=== PATIENT | female | born 1970 ===

== ENCOUNTER 2018-02-27 13:50 | Observation (INO) | payer OTHER ==
--- NOTE | 2018-02-27 14:52 | ED PDOC ---
HPI: General Adult Time Seen by Provider: 02/27/18 14:35 Chief Complaint (Nursing): Dental Pain Chief Complaint (Provider): facial swelling History Per: Patient History/Exam Limitations: no limitations Current Symptoms Are (Timing): Still Present Severity: Moderate Location Of Discomfort (Image): 1 - pain swelling Additional Complaint(s): Virtual Initial Exam 47yo female with L facial swelling since yesterday, started around L ear progressing to cheek and upper neck. States has mild tinnitus, denies discharge from ear, fever, neck pain or difficulty swallowing. Past Medical History Reviewed: Historical Data, Nursing Documentation, Vital Signs - Medical History PMH: No Chronic Diseases - Family History Family History: States: Unknown Family Hx - Allergies Allergies/Adverse Reactions: Allergies Allergy/AdvReac Type Severity Reaction Status Date / Time No Known Allergies Allergy Verified 02/27/18 14:46 Review of Systems Constitutional: Negative for: Fever ENT: Positive for: Ear Pain, Other (facial pain swelling). Negative for: Nose Pain, Nose Discharge Cardiovascular: Negative for: Chest Pain Respiratory: Negative for: Shortness of Breath Gastrointestinal: Negative for: Abdominal Pain Neurological: Positive for: Headache. Negative for: Weakness, Numbness, Dizziness Physical Exam - Physical Exam Appears: Positive for: Well, Non-toxic Head Exam: Positive for: ATRAUMATIC ENT: Positive for: Other (L facial swelling and edema/erythema around ear) Medical Decision Making Medical Decision Making: initial evaluation completed via telemedicine, initial orders placed and care transferred to ground provider 255pm Disposition - Disposition
[2018-02-27] MEDS ORDERED: Sodium Chloride 0.9% 1,000 ML IV STA (15:34)
[2018-02-27 15:49] LABS: BASO # 0.1 K/uL (0.0-0.2); BASO % 1.1 % (0.0-2.0); EOS % 0.1 % (0.0-4.0); HEMOGLOBIN 11.8 g/dL (12.0-16.0); LYMPH # 1.4 K/uL (1.0-4.3); LYMPH % 18.5 % (20.0-40.0); MEAN CELL VOLUME 80.9 fl (81.0-99.0); MEAN CORPUSCULAR HEMOGLOBIN 26.4 pg (27.0-31.0); MEAN CORPUSCULAR HGB CONC 32.7 g/dL (33.0-37.0); MEAN PLATELET VOLUME 8.9 fl (7.2-11.7); MONO # 0.4 K/uL (0.0-0.8); MONO % 5.7 % (0.0-10.0); NEUT # 5.7 K/uL (1.8-7.0); NEUT % 74.6 % (50.0-75.0); RBC 4.46 Mil/uL (3.80-5.20); RED CELL DISTRIBUTION WIDTH 14.8 % (11.5-14.5); WHITE BLOOD COUNT 7.7 K/uL (4.8-10.8)
--- NOTE | 2018-02-27 15:58 | ED PDOC ---
HPI: General Adult Time Seen by Provider: 02/27/18 14:35 Chief Complaint (Nursing): Abnormal Skin Integrity Chief Complaint (Provider): Abnormal Skin Integrity History Per: Patient History/Exam Limitations: no limitations Onset/Duration Of Symptoms: Days (x1) Current Symptoms Are (Timing): Still Present Additional Complaint(s): Patient is a 47 y/o female with no significant PMHx who presents to the ED left- sided ear pain since yesterday. Patient claims the pain is worsening and radiating to the left side of the face since onset. Patient states her ear has swollen to the point where she in unable to remove her earring. Patient reports mild pain in her ear canal, but most of her pain is localized outside. Patient admits to subjective fever, chills, and lightheadedness. Patient denies any recent trauma. PCP: None Provided Past Medical History Reviewed: Historical Data, Nursing Documentation, Vital Signs Vital Signs: Last Vital Signs Temp 98.6 F 02/27/18 14:46 Pulse 109 H 02/27/18 14:46 Resp 16 02/27/18 14:46 BP 125/82 02/27/18 14:46 Pulse Ox 100 02/27/18 14:46 - Medical History PMH: No Chronic Diseases - Surgical History Surgical History: - Family History Family History: States: Unknown Family Hx - Social History Current smoker - smoking cessation education provided: No - Home Medications Home Medications: Ambulatory Orders Medication Instructions Recorded Levothyroxine [Synthroid] 100 mcg PO DAILY 02/27/18 - Allergies Allergies/Adverse Reactions: Allergies Allergy/AdvReac Type Severity Reaction Status Date / Time Penicillins Allergy RASH Verified 02/27/18 15:48 Review of Systems ROS Statement: Except As Marked, All Systems Reviewed And Found Negative (as per HPI) Constitutional: Positive for: Fever (subjective), Chills ENT: Positive for: Ear Pain (and swelling radiating to left side of face; most pain localized on outside; mild pain inside) Neurological: Positive for: Other (lightheaded) Physical Exam - Reviewed Nursing Documentation Reviewed: Yes Vital Signs Reviewed: Yes - Physical Exam Appears: Positive for: Non-toxic, In Acute Distress (painful) Head Exam: Positive for: ATRAUMATIC, NORMAL INSPECTION, NORMOCEPHALIC Skin: Positive for: Warm, Dry Eye Exam: Positive for: EOMI, PERRL ENT: Positive for: TM Is/Are (LEFT: white, scarring opacity; no erythema. RIGHT: normal), Other (Left, upper ear cartilage is diffusely erythematous and edematous; erythema extending to preauricular face; tenderness to palpation of preauricular node and mastoid; ear canal mild swelling) Neck: Positive for: Painless ROM, Supple Cardiovascular/Chest: Positive for: Regular Rate, Rhythm, Tachycardia. Negative for: Murmur Respiratory: Positive for: Normal Breath Sounds. Negative for: Respiratory Distress Gastrointestinal/Abdominal: Positive for: Soft. Negative for: Tenderness Back: Positive for: Normal Inspection. Negative for: Muscle Spasm Extremity: Positive for: Normal ROM. Negative for: Deformity Lymphatic: Positive for: Adenopathy (periauricular) Neurologic/Psych: Positive for: Alert. Negative for: Motor/Sensory Deficits - Laboratory Results Result Diagrams: 02/27/18 15:08 02/27/18 15:08 - ECG O2 Sat by Pulse Oximetry: 100 (RA) Pulse Ox Interpretation: Normal Medical Decision Making Medical Decision Making: Time: 1508 Impression: Perichondritis DDx includes but not limited to malignant otitis externum, facial cellulitis, and mastoiditis. Plan: CMP Lact Acid, Plasma CBC IV Fluids Toradol 15 mg IVP Tylenol 650 mg PO Blood Culture Time: [address] Dias, ENT specialist, who states to initiate IV antibiotics and IV Decadron. Agrees with evaluation of Mastoids via CT scan. Time: 1734 FINDINGS: RIGHT TEMPORAL BONE: RIGHT MIDDLE EAR: Normal. RIGHT INNER EAR: Cochlea: Normal. Semicircular canals: Normal. RIGHT MASTOID AIR CELLS: Normal. RIGHT INTERNAL AUDITORY CANAL: Normal. RIGHT EXTERNAL AUDITORY CANAL: Normal. RIGHT VESTIBULAR AND COCHLEAR AQUEDUCT: Normal. OTHER FINDINGS: None. LEFT TEMPORAL BONE: LEFT MIDDLE EAR: Normal. LEFT INNER EAR: Cochlea: Normal. Semicircular canals: Normal. LEFT MASTOID AIR CELLS: Normal. LEFT INTERNAL AUDITORY CANAL: Normal. LEFT EXTERNAL AUDITORY CANAL: Normal. LEFT VESTIBULAR AND COCHLEAR AQUEDUCTS: Normal. OTHER FINDINGS: There appears to be mild moderate infiltration/swelling of the left pinna as well as the subjacent soft tissues extending anteriorly over the mandibular condyle and posteriorly over the mastoid process. Collectively these findings are consistent with a cellulitis no evidence of subjacent cortical destructive changes of the outer table. No definitive drainable fluid collections.... No evidence of extension into the soft tissues of the external auditory canal IMPRESSION: Mild moderate infiltration and swelling of the left pinna which extends both circumferentially anteriorly overlying the mandibular condyle and posteriorly overlying the tip of the mastoid process. Findings are consistent with a cellulitis. No definitive evidence of extension into the soft tissues of the external auditory canal. No evidence of subjacent cortical destructive changes of the outer table of the calvarium. No definitive drainable fluid collections. No evidence of acute mastoiditis. No evidence of otitis media. Time: 174 On reevaluation, swelling and redness have slightly improved, but persist. Patient reports feeling a little better. Labs were unremarkable. Time: [address] Dias who recommends observation in hospital and IV antibiotics for 24 hours. Discuss[address] hospice with Dr. Tam. -------- Scribe Attestation: Documented by Stanislaw Rollins, acting as a scribe for provider Danna Leung MD. All medical record entries made by the Scribe were at my direction and personally dictated by me. I have reviewed the chart and agree that the record accurately reflects my personal performance of the history, physical exam, medical decision making, and the department course for this patient. I have also personally directed, reviewed, and agree with the discharge instructions and disposition. Disposition - Clinical Impression Clinical Impression: Perichondritis, Facial cellulitis Doctor Will See Patient In The: Hospital Counseled Patient/Family Regarding: Studies Performed, Diagnosis - Disposition Disposition Time: 18:00 Condition: FAIR - Pt Status Changed To: Hospital Disposition Of: Observation - POA Present On Arrival: None
[2018-02-27] MEDS ORDERED: Ciprofloxacin 400mg/200ml D5W 400 MG/200 ML BAG IV STA (16:03)
[2018-02-27] MEDS ORDERED: Clindamycin 600mg/50ml D5W 600 MG/50 ML VIAL IVPB STA (16:04)
[2018-02-27 16:10] LABS: ALB/GLOB RATIO 1.3 (1.0-2.1); ALBUMIN 4.2 g/dL (3.5-5.0); ALT/SGPT 23 U/L (9-52); AST/SGOT 30 U/L (14-36); BLOOD UREA NITROGEN 11 mg/dl (7-17); GFR NON-AFRICAN AMERICAN > 60
[2018-02-27] MEDS ORDERED: Ciprofloxacin 400mg/200ml D5W 400 MG/200 ML BAG IVPB ONE ×2 (16:24→21:09)
--- NOTE | 2018-02-27 17:52 | CT ---
Date of service: 02/27/2018 PROCEDURE: CT OF THE TEMPORAL BONES WITHOUT CONTRAST HISTORY: Severe perichondritis; rule out mastoiditis COMPARISON: Expect to [place] place TECHNIQUE: High resolution axial images of the temporal bones were obtained. Coronal and sagittal reformats were generated. Radiation dose: Total exam DLP = 726.72 mGy-cm. This CT exam was performed using one or more of the following dose reduction techniques: Automated exposure control, adjustment of the mA and/or kV according to patient size, and/or use of iterative reconstruction technique. FINDINGS: RIGHT TEMPORAL BONE: RIGHT MIDDLE EAR: Normal. RIGHT INNER EAR: Cochlea: Normal. Semicircular canals: Normal. RIGHT MASTOID AIR CELLS: Normal. RIGHT INTERNAL AUDITORY CANAL: Normal. RIGHT EXTERNAL AUDITORY CANAL: Normal. RIGHT VESTIBULAR AND COCHLEAR AQUEDUCT: Normal. OTHER FINDINGS: None. LEFT TEMPORAL BONE: LEFT MIDDLE EAR: Normal. LEFT INNER EAR: Cochlea: Normal. Semicircular canals: Normal. LEFT MASTOID AIR CELLS: Normal. LEFT INTERNAL AUDITORY CANAL: Normal. LEFT EXTERNAL AUDITORY CANAL: Normal. LEFT VESTIBULAR AND COCHLEAR AQUEDUCTS: Normal. OTHER FINDINGS: There appears to be mild moderate infiltration/swelling of the left pinna as well as the subjacent soft tissues extending anteriorly over the mandibular condyle and posteriorly over the mastoid process. Collectively these findings are consistent with a cellulitis no evidence of subjacent cortical destructive changes of the outer table. No definitive drainable fluid collections.... No evidence of extension into the soft tissues of the external auditory canal IMPRESSION: Mild moderate infiltration and swelling of the left pinna which extends both circumferentially anteriorly overlying the mandibular condyle and posteriorly overlying the tip of the mastoid process. Findings are consistent with a cellulitis. No definitive evidence of extension into the soft tissues of the external auditory canal. No evidence of subjacent cortical destructive changes of the outer table of the calvarium. No definitive drainable fluid collections. No evidence of acute mastoiditis. No evidence of otitis media.
--- NOTE | 2018-02-27 18:42 | CP.PCM.HP ---
<Zander Molina - Last Filed: 02/27/18 19:05> History of Present Illness - History of Present Illness History of Present Illness: 47 yo F with pmhx of hypothyroid presents to the ED with L facial and ear swelling. Pt reports that since yesterday AM, she felt mild outer ear erythema progressed to swelling progressed to tenderness progressed to inner ear pain and associated with subjective fevers. Associated with tinnitus, decreased hearing on the Left, and dizziness with walking. Headache to the left side, pulsatile, intermittent, rated 9/10. D She reports tylenol mildy alleviated her symptoms Denies: recent trauma to the ear, bug bites, recent lesions/break to skin, or history of otitis externa/media, ear discharge, falls, loss of consciousness, denies current chest pain, sob, n/v. PMD: none Surg: x2 (1997 and 2006) Soc: Denies: smoking, alcohol, illicit drugs Famhx: HTN Rx: on levothyroxine 100 mcg Allergy to penicillin Present on Admission - Present on Admission Any Indicators Present on Admission: No History of Uncontrolled Diabetes: No Urinary Catheter: No Review of Systems - Constitutional Constitutional: Headache - EENT Ears: As Per HPI, Decreased Hearing, Ear Pain, Tinnitus, Abnormal Hearing, Dizziness. absent: Ear Discharge Nose/Mouth/Throat: As Per HPI, Facial Pain, Neck Pain, Neck Mass. absent: Odynophagia, Sore Throat - Cardiovascular Cardiovascular: absent: Chest Pain, Chest Pain at Rest - Respiratory Respiratory: absent: Cough, Dyspnea - Gastrointestinal Gastrointestinal: absent: Abdominal Pain, Constipation, Diarrhea, Nausea, Vomiting - Neurological Neurological: Dizziness, Headaches Past Patient History - Past Social History Smoking Status: Never Smoked Alcohol: None Drugs: Denies Home Situation {Lives}: With Family - ENDOCRINE/METABOLIC Hx Hypothyroidism: Yes - PSYCHIATRIC Hx Substance Use: No Meds Allergies/Adverse Reactions: Allergies Allergy/AdvReac Type Severity Reaction Status Date / Time Penicillins Allergy RASH Verified 02/27/18 15:48 Physical Exam - Constitutional Appears: No Acute Distress - Head Exam Additional comments: L pinna, Preauricular, posterior auricular erythema and edema, mild tenderness No auricular discharge. - Eye Exam Eye Exam: EOMI - ENT Exam ENT Exam: Mucous Membranes Moist - Neck Exam Neck exam: Positive for: Lymphadenopathy, Tenderness - Respiratory Exam Respiratory Exam: Clear to Auscultation Bilateral, NORMAL BREATHING PATTERN. absent: Wheezes - Cardiovascular Exam Cardiovascular Exam: REGULAR RHYTHM, +S1, +S2 - GI/Abdominal Exam GI & Abdominal Exam: Normal Bowel Sounds, Soft. absent: Tenderness - Extremities Exam Extremities exam: Negative for: calf tenderness - Back Exam Back exam: absent: CVA tenderness (L), CVA tenderness (R) - Neurological Exam Neurological exam: Alert, Oriented x3 - Psychiatric Exam Psychiatric exam: Normal Affect, Normal Mood Results - Vital Signs Recent Vital Signs: Last Vital Signs Temp 98.6 F 02/27/18 14:46 Pulse 109 H 02/27/18 14:46 Resp 16 02/27/18 14:46 BP 125/82 02/27/18 14:46 Pulse Ox 100 02/27/18 18:14 - Labs Result Diagrams: 02/27/18 15:08 02/27/18 15:08 Labs: Laboratory Results - last 24 hr 02/27/18 02/27/18 02/27/18 15:08 15:08 15:45 WBC 7.7 RBC 4.46 Hgb 11.8 L Hct 36.1 MCV 80.9 L MCH 26.4 L MCHC 32.7 L RDW 14.8 H Plt Count 272 MPV 8.9 Neut % (Auto) 74.6 Lymph % (Auto) 18.5 L [place] % (Auto) 5.7 Eos % (Auto) 0.1 Baso % (Auto) 1.1 Neut # (Auto) 5.7 Lymph # (Auto) 1.4 [place] # (Auto) 0.4 Eos # (Auto) 0.0 Baso # (Auto) 0.1 Sodium 137 Potassium 3.6 Chloride 104 Carbon Dioxide 25 Anion Gap 12 BUN 11 Creatinine 0.8 Est GFR ( Amer) > 60 Est GFR (Non-Af Amer) > 60 Random Glucose 106 H Lactic Acid 1.7 Calcium 9.0 Total Bilirubin 0.4 AST 30 ALT 23 Alkaline Phosphatase 82 Total Protein 7.5 Albumin 4.2 Globulin 3.3 Albumin/Globulin Ratio 1.3 Assessment & Plan - Assessment and Plan (Free Text) Assessment: 47 yo F with pmhx of hypothyroid admitted for L perichondritis and L facial cellulitis Plan: CT facial bones: Mild moderate infiltration and swelling of the left pinna which extends both circumferentially anteriorly overlying the mandibular condyle and posteriorly overlying the tip of the mastoid process. Findings are consistent with a cellulitis. No definitive evidence of extension into the soft tissues of the external auditory canal. No evidence of subjacent cortical destructive changes of the outer table of the calvarium. No definitive drainable fluid collections. No evidence of acute mastoiditis. No evidence of otitis media. L perichondritis with ipsilateral facial cellulitis Admit to med/surg Otolaryngology: Dr. Dias consulted: recs appreciated: recommend IV ABX s/p Dexamethasone 10 mg IVP and Cipro, clinda in ED IVABX: Ciprofloxacin and Clindamycin Pain management: Acetaminophen, Motrin f/u am labs, blood culture Hypothyroid c/w home meds: Levothyroxine 100 mcg f/u TSH DVT prophylaxis Lovenox 40 mg SC Pantoprazole 40 mg PO Case and plan d/w Dr. Yonatan Molina MD PGY-2 <Chris Tam D - Last Filed: 02/28/18 09:21> Results - Vital Signs Recent Vital Signs: Last Vital Signs Temp 98 F 02/28/18 08:34 Pulse 68 02/28/18 08:34 Resp 20 02/28/18 08:34 BP 104/64 02/28/18 08:34 Pulse Ox 99 02/28/18 08:34 - Labs Result Diagrams: 02/28/18 05:45 02/28/18 05:45 Labs: Laboratory Results - last 24 hr 02/27/18 02/27/18 02/27/18 15:08 15:08 15:45 WBC 7.7 RBC 4.46 Hgb 11.8 L Hct 36.1 MCV 80.9 L MCH 26.4 L MCHC 32.7 L RDW 14.8 H Plt Count 272 MPV 8.9 Neut % (Auto) 74.6 Lymph % (Auto) 18.5 L [place] % (Auto) 5.7 Eos % (Auto) 0.1 Baso % (Auto) 1.1 Neut # (Auto) 5.7 Lymph # (Auto) 1.4 [place] # (Auto) 0.4 Eos # (Auto) 0.0 Baso # (Auto) 0.1 Sodium 137 Potassium 3.6 Chloride 104 Carbon Dioxide 25 Anion Gap 12 BUN 11 Creatinine 0.8 Est GFR ( Amer) > 60 Est GFR (Non-Af Amer) > 60 Random Glucose 106 H Lactic Acid 1.7 Calcium 9.0 Total Bilirubin 0.4 AST 30 ALT 23 Alkaline Phosphatase 82 Total Protein 7.5 Albumin 4.2 Globulin 3.3 Albumin/Globulin Ratio 1.3 TSH 3rd Generation 02/28/18 02/28/18 05:45 05:45 WBC 8.3 RBC 4.11 Hgb 11.0 L Hct 33.1 L MCV 80.6 L MCH 26.7 L MCHC 33.2 RDW 14.7 H Plt Count 264 MPV 9.0 Neut % (Auto) 83.2 H Lymph % (Auto) 13.7 L [place] % (Auto) 2.3 Eos % (Auto) 0.0 Baso % (Auto) 0.8 Neut # (Auto) 6.9 Lymph # (Auto) 1.1 [place] # (Auto) 0.2 Eos # (Auto) 0.0 Baso # (Auto) 0.1 Sodium 137 Potassium 4.2 Chloride 109 H Carbon Dioxide 22 Anion Gap 10 BUN 9 Creatinine 0.8 Est GFR ( Amer) > 60 Est GFR (Non-Af Amer) > 60 Random Glucose 128 H Lactic Acid Calcium 8.6 Total Bilirubin AST ALT Alkaline Phosphatase Total Protein Albumin Globulin Albumin/Globulin Ratio TSH 3rd Generation 0.95 Attending/Attestation - Attestation I have personally seen and examined this patient.: Yes I have fully participated in the care of the patient.: Yes I have reviewed all pertinent clinical information: Yes Notes (Text): 02/28/18 09:20 Patient seen and examined with resident. Case discussed and agreed with assessment and plan of management.
[2018-02-27] MEDS: Sodium Chloride 0.9% 1,000 ML IV SCH (18:58)
[2018-02-27] MEDS: Ciprofloxacin 400mg/200ml D5W 400 MG/200 ML BAG IVPB SCH (21:13)
[2018-02-28] MEDS: Clindamycin 600mg/50ml D5W 600 MG/50 ML VIAL IVPB SCH ×2 (01:06→11:13)
[2018-02-28] MEDS: Sodium Chloride 0.9% 1,000 ML IV SCH (03:48)
[2018-02-28 06:58] LABS: BASO # 0.1 K/uL (0.0-0.2); BASO % 0.8 % (0.0-2.0); LYMPH # 1.1 K/uL (1.0-4.3); LYMPH % 13.7 % (20.0-40.0); MEAN CELL VOLUME 80.6 fl (81.0-99.0); MEAN CORPUSCULAR HEMOGLOBIN 26.7 pg (27.0-31.0); MEAN CORPUSCULAR HGB CONC 33.2 g/dL (33.0-37.0); MONO # 0.2 K/uL (0.0-0.8); MONO % 2.3 % (0.0-10.0); NEUT # 6.9 K/uL (1.8-7.0); NEUT % 83.2 % (50.0-75.0); RBC 4.11 Mil/uL (3.80-5.20); RED CELL DISTRIBUTION WIDTH 14.7 % (11.5-14.5); WHITE BLOOD COUNT 8.3 K/uL (4.8-10.8)
[2018-02-28 07:02] LABS: BLOOD UREA NITROGEN 9 mg/dl (7-17); CALCIUM 8.6 mg/dL (8.4-10.2); GFR NON-AFRICAN AMERICAN > 60
[2018-02-28 08:34] VITALS: BP 104/64; PULSE 68; RESP 20; TEMP 98; O2SAT 99
[2018-02-28] MEDS ORDERED: Enoxaparin 40 mg Syringe SC SCH (09:00)
[2018-02-28] MEDS ORDERED: Pantoprazole 40 mg EC Tab PO SCH (09:00)
[2018-02-28] MEDS ORDERED: Levothyroxine 100 MCG TAB PO SCH (09:00)
--- NOTE | 2018-02-28 10:56 | CP.PCM.PN ---
Subjective - Date & Time of Evaluation Date of Evaluation: 02/28/18 Time of Evaluation: 09:00 - Subjective Subjective: Patient seen and examined at bedside. She reports feeling well and noticed decrease in left facial and ear swelling as compared to yesterday. She denies pain at this time. Tolerating her meals. No overnight events. Patient has been vitally stable and afebrile. Denies chills, chest pain, shortness of breath, neck pain, headaches, abdominal pain, nausea, vomiting or diarrhea. Objective - Vital Signs/Intake and Output Vital Signs (last 24 hours): Temp Pulse Resp BP Pulse Ox 98 F 68 20 104/64 99 02/28/18 08:34 02/28/18 08:34 02/28/18 08:34 02/28/18 08:34 02/28/18 08:34 - Medications Medications: Current Medications Acetaminophen (Tylenol 325mg Tab) 650 mg PO Q6 PRN PRN Reason: Fever >100.4 F Enoxaparin Sodium (Lovenox) 40 mg SC DAILY NIKITA; Protocol Last Admin: 02/28/18 09:44 Dose: 40 mg Sodium Chloride (Sodium Chloride 0.9%) 1,000 mls @ 100 mls/hr IV .Q10H NIKITA Last Admin: 02/28/18 03:48 Dose: 100 mls/hr Ciprofloxacin (Cipro 400mg/200ml Dsw) 400 mg in 200 mls @ 200 mls/hr IVPB Q12 NIKITA; Protocol Last Admin: 02/27/18 21:13 Dose: 200 mls/hr Clindamycin Phosphate (Cleocin) 600 mg in 50 mls @ 50 mls/hr IVPB Q8 NIKITA; Protocol Ibuprofen (Motrin Tab) 400 mg PO Q6H PRN PRN Reason: Pain, Mild (1-3) Last Admin: 02/27/18 21:12 Dose: 400 mg Levothyroxine Sodium (Synthroid) 100 mcg PO DAILY NIKITA Last Admin: 02/28/18 09:46 Dose: 100 mcg Pantoprazole Sodium (Protonix Ec Tab) 40 mg PO DAILY NIKITA Last Admin: 02/28/18 09:44 Dose: 40 mg - Labs Labs: 02/28/18 05:45 02/28/18 05:45 - Constitutional Appears: Well, Non-toxic, No Acute Distress - Eye Exam Eye Exam: Normal appearance - ENT Exam ENT Exam: Mucous Membranes Moist Additional comments: Left ear swollen and erythematous- no drainage or open wound noted on exam. Tenderness to palpation on left lower ear lobule and left mandible. No occipital, periauricular, superficial cervical and deep cervical lymph node tenderness. - Neck Exam Neck Exam: absent: Lymphadenopathy, Tenderness - Cardiovascular Exam Cardiovascular Exam: REGULAR RHYTHM, RRR, +S1, +S2. absent: Rubs, Murmur - GI/Abdominal Exam GI & Abdominal Exam: Soft, Normal Bowel Sounds. absent: Tenderness - Extremities Exam Extremities Exam: Normal Inspection. absent: Pedal Edema - Neurological Exam Neurological Exam: Alert - Skin Skin Exam: Dry, Intact, Normal Color, Warm Assessment and Plan - Assessment and Plan (Free Text) Assessment: 47 yo F with pmhx of hypothyroid admitted for L perichondritis and L facial cellulitis currently on IV antibiotics (ciprofloxacin day 2 and clindamycin day 1). CT facial bones 02/27/15: Mild moderate infiltration and swelling of the left pinna which extends both circumferentially anteriorly overlying the mandibular condyle and posteriorly overlying the tip of the mastoid process. Findings are consistent with a cellulitis. No definitive evidence of extension into the soft tissues of the external auditory canal. No evidence of subjacent cortical destructive changes of the outer table of the calvarium. No definitive drainable fluid collections. No evidence of acute mastoiditis. No evidence of otitis media. Plan: L perichondritis with ipsilateral facial cellulitis Otolaryngology: Dr. Larissa varma appreciated: recommend IV ABX with Ciprofloxacin (day 2) and Clindamycin (Day 1) s/p Dexamethasone 10 mg IVP and Cipro, clinda in ED Pain management: Acetaminophen, Motrin f/u blood culture Hypothyroid c/w home meds: Levothyroxine 100 mcg TSH: 0.95 (normal) DVT prophylaxis Lovenox 40 mg SC Pantoprazole 40 mg PO
[2018-02-28] MEDS: Ciprofloxacin 400mg/200ml D5W 400 MG/200 ML BAG IVPB SCH (11:15)
--- NOTE | 2018-02-28 12:07 | CP.PCM.DIS ---
Provider - Provider Date of Admission: 02/27/18 18:00 Attending physician: Chris Tam MD Consults: 02/27/18 18:02 Otolaryngology Consult Stat Consulting Provider: Lane Dias Consulting Physician: Lane Dias Reason for Consult: LEFT perichondritis and cellulitis Time Spent in preparation of Discharge (in minutes): 30 Diagnosis - Discharge Diagnosis (1) Facial cellulitis Status: Acute (2) Perichondritis Status: Acute Hospital Course - Lab Results Lab Results: Most Recent Lab Values WBC 8.3 K/uL (4.8-10.8) 02/28/18 05:45 RBC 4.11 Mil/uL (3.80-5.20) 02/28/18 05:45 Hgb 11.0 g/dL (12.0-16.0) L 02/28/18 05:45 Hct 33.1 % (34.0-47.0) L 02/28/18 05:45 MCV 80.6 fl (81.0-99.0) L 02/28/18 05:45 MCH 26.7 pg (27.0-31.0) L 02/28/18 05:45 MCHC 33.2 g/dL (33.0-37.0) 02/28/18 05:45 RDW 14.7 % (11.5-14.5) H 02/28/18 05:45 Plt Count 264 K/uL (130-400) 02/28/18 05:45 MPV 9.0 fl (7.2-11.7) 02/28/18 05:45 Neut % (Auto) 83.2 % (50.0-75.0) H 02/28/18 05:45 Lymph % (Auto) 13.7 % (20.0-40.0) L 02/28/18 05:45 [place] % (Auto) 2.3 % (0.0-10.0) 02/28/18 05:45 Eos % (Auto) 0.0 % (0.0-4.0) 02/28/18 05:45 Baso % (Auto) 0.8 % (0.0-2.0) 02/28/18 05:45 Neut # (Auto) 6.9 K/uL (1.8-7.0) 02/28/18 05:45 Lymph # (Auto) 1.1 K/uL (1.0-4.3) 02/28/18 05:45 [place] # (Auto) 0.2 K/uL (0.0-0.8) 02/28/18 05:45 Eos # (Auto) 0.0 K/uL (0.0-0.7) 02/28/18 05:45 Baso # (Auto) 0.1 K/uL (0.0-0.2) 02/28/18 05:45 Sodium 137 mmol/l (132-148) 02/28/18 05:45 Potassium 4.2 MMOL/L (3.6-5.0) 02/28/18 05:45 Chloride 109 mmol/L (98-107) H 02/28/18 05:45 Carbon Dioxide 22 mmol/L (22-30) 02/28/18 05:45 Anion Gap 10 (10-20) 02/28/18 05:45 BUN 9 mg/dl (7-17) 02/28/18 05:45 Creatinine 0.8 mg/dl (0.7-1.2) 02/28/18 05:45 Est GFR ( Amer) > 60 02/28/18 05:45 Est GFR (Non-Af Amer) > 60 02/28/18 05:45 Random Glucose 128 mg/dL (65-105) H 02/28/18 05:45 Lactic Acid 1.7 MMOL/L (0.7-2.1) 02/27/18 15:45 Calcium 8.6 mg/dL (8.4-10.2) 02/28/18 05:45 Total Bilirubin 0.4 mg/dl (0.2-1.3) 02/27/18 15:08 AST 30 U/L (14-36) 02/27/18 15:08 ALT 23 U/L (9-52) 02/27/18 15:08 Alkaline Phosphatase 82 U/L (38-126) 02/27/18 15:08 Total Protein 7.5 G/DL (6.3-8.2) 02/27/18 15:08 Albumin 4.2 g/dL (3.5-5.0) 02/27/18 15:08 Globulin 3.3 gm/dL (2.2-3.9) 02/27/18 15:08 Albumin/Globulin Ratio 1.3 (1.0-2.1) 02/27/18 15:08 TSH 3rd Generation 0.95 mIU/ML (0.46-4.68) 02/28/18 05:45 - Hospital Course Hospital Course: 47 yo F with pmhx of hypothyroid present was admitted for L perichondritis with ipsilateral facial cellulitis. Hospital course: Patient was consistently afebrile and vitally stable during her hospital stay. CT scan of facial bones demonstrated moderate infiltration and swelling of left pinna consistent with cellulitis; no fluid collection and no evidence of acute mastoiditis or otitis media. Otolaryngology, Dr. Dias, was consulted and patient was started on Ciprofloxacin and Clindamycin. Swelling of Left ear decreased over hospital course. Patient given discharge instructions and is to continue antibiotic therapy with oral Abx- Clindamycin 300mg PO TID. - Date & Time of H&P Date of H&P: 02/28/18 Time of H&P: 12:05 Discharge Exam - Head Exam Head Exam: ATRAUMATIC, NORMAL INSPECTION, NORMOCEPHALIC - Eye Exam Eye Exam: Normal appearance - ENT Exam ENT Exam: Mucous Membranes Moist Additional comments: Left swollen and erythematous ear. No drainage or open wound noted. Mild tenderness lower ear lobe and left mandible. No lymph node tenderness or enlargement noted. - Neck Exam Neck exam: Normal Inspection - Neurological Exam Neurological exam: Alert - Skin Skin Exam: Dry, Intact, Normal Color, Warm Discharge Plan - Discharge Medications Prescriptions: Clindamycin [Cleocin] 300 mg PO TID #21 cap - Follow Up Plan Condition: FAIR Disposition: HOME/ ROUTINE Patient education suggested?: Yes Instructions: Cellulitis (Skin Infection), Adult (DC), Cellulitis (DC), Cellulitis (GEN) Additional Instructions: hacer nick [facility]. Referrals: [facility] [Outside] Lane Dias MD [Staff Provider] -
[2018-02-28] MEDS ORDERED: Clindamycin 600mg/50ml D5W 600 MG/50 ML VIAL IVPB SCH (17:00)
== END 2018-02-28 15:02 | disposition home or self-care (01) ==
LOC: H.ER 13:50 → H.ERHOLD 18:00 → H.MEDSURG1 22:32
DX: L03.211 Cellulitis of face (principal); E03.9 Hypothyroidism, unspecified; Z88.0 Allergy status to penicillin; Z79.890 Hormone replacement therapy; H61.002 Unspecified perichondritis of left external ear
CPT/HCPCS: 36415; 70480; 80048; 80053; 81025; 83605; 84443; 85025; 87040; 96360; 96374; 99285; G0378; J0744; J1100; J1650; J1885; J7030

== ENCOUNTER 2018-03-21 09:28 | Emergency (ER) | payer OTHER, SELFPAY ==
[2018-03-21 09:35] VITALS: RESP 18
[2018-03-21] MEDS ORDERED: Promethazine/Cod 6.25mg-10mg/5ml Syr UD PO STA (10:32)
[2018-03-21] MEDS ORDERED: Promethazine/Cod 6.25mg-10mg/5ml Syr UD ONE (10:51)
--- NOTE | 2018-03-21 12:23 | ED PDOC ---
HPI: Influenza Time Seen by Provider: 03/21/18 10:09 Chief Complaint: Flu-like Symptoms Chief Complaint (Provider): Flu-like Symptoms History Per: Patient Exam Limitations: no limitations Have you had recent travel within the past 21 days to any of: No Onset/Duration Of Symptoms: Days (x3) Additional complaint(s):: Patient is a 47 y/o female with a PMHx of hypothyroidism who presents to the ED for evaluation of flu-like symptoms for the past three days. Patient admits to a dry cough, fever, congestion, headache, body aches, and throat pain. Patient took Tylenol intermittently for fever but her symptoms kept returning. Patient denies chest pain, difficulty breathing, sick contacts, and recent travel. PCP: [facility] Past Medical History Reviewed: Historical Data, Nursing Documentation, Vital Signs Vital Signs: Last Vital Signs Temp 98.7 F 03/21/18 09:34 Pulse 117 H 03/21/18 09:34 Resp 18 03/21/18 09:34 BP 118/72 03/21/18 09:34 Pulse Ox 99 03/21/18 09:34 - Medical History PMH: Hypothyroidism Denies: Chronic Kidney Disease - Surgical History Surgical History: - Family History Family History: States: Unknown Family Hx - Home Medications Home Medications: Ambulatory Orders Medication Instructions Recorded Levothyroxine [Synthroid] 100 mcg PO DAILY 02/27/18 Clindamycin [Cleocin] 300 mg PO TID #21 cap 02/28/18 Ibuprofen [Motrin] 600 mg PO Q6 #20 tab 03/21/18 Oseltamivir Cap [Tamiflu] 75 mg PO BID #10 tab 03/21/18 Promethazine/Codeine 5 ml PO Q6 PRN #100 ml 03/21/18 [Phenergan/Codeine Oral Syrup] - Allergies Allergies/Adverse Reactions: Allergies Allergy/AdvReac Type Severity Reaction Status Date / Time Penicillins Allergy RASH Verified 02/27/18 15:48 Review of Systems ROS Statement: Except As Marked, All Systems Reviewed And Found Negative Constitutional: Positive for: Fever, Other (body aches) ENT: Positive for: Nose Congestion, Throat Pain Cardiovascular: Negative for: Chest Pain Respiratory: Positive for: Cough (dry). Negative for: Other (difficulty breathing) Neurological: Positive for: Headache Physical Exam - Reviewed Nursing Documentation Reviewed: Yes Vital Signs Reviewed: Yes - Physical Exam Appears: Positive for: Non-toxic, No Acute Distress (comfrotable) Skin: Positive for: Normal Color, Warm, Dry Eye Exam: Positive for: Normal appearance, EOMI, PERRL ENT: Positive for: Pharyngeal Erythema Neck: Positive for: Normal, Painless ROM, Supple Cardiovascular/Chest: Positive for: Regular Rate, Rhythm. Negative for: Murmur Respiratory: Positive for: Normal Breath Sounds. Negative for: Respiratory Distress Gastrointestinal/Abdominal: Positive for: Normal Exam, Soft. Negative for: Tenderness Back: Positive for: Normal Inspection. Negative for: L CVA Tenderness, R CVA Tenderness, Vertebral Tenderness Extremity: Positive for: Normal ROM. Negative for: Pedal Edema, Deformity Neurologic/Psych: Positive for: Alert, Oriented, Motor/Sensory Deficits Medical Decision Making Medical Decision Making: Time: 1002 Impression: Flu-like symptoms DDx includes but not limited to influenza. Plan: Chest Two Views (Pa/Lat) [Rad] Motrin Tab 600 mg PO Phenergan/Codeine Oral Syrup 5 ml PO Throat Culture Influenza A B Rapd Strep Group A Antigen Time: 1110 Flu A positive. Time: 1340 FINDINGS: LUNGS: No active pulmonary disease. PLEURA: No significant pleural effusion identified. No pneumothorax apparent. CARDIOVASCULAR: No aortic atherosclerotic calcification present. Normal cardiac size. No pulmonary vascular congestion. OSSEOUS STRUCTURES: No significant abnormalities. VISUALIZED UPPER ABDOMEN: Normal. OTHER FINDINGS: None. IMPRESSION: No active disease. --------- Scribe Attestation: Documented by Stanislaw Rollins, acting as a scribe for Vazquez Galdamez MD. Provider Scribe Attestation: All medical record entries made by the Scribe were at my direction and personally dictated by me. I have reviewed the chart and agree that the record accurately reflects my personal performance of the history, physical exam, medical decision making, and the department course for this patient. I have also personally directed, reviewed, and agree with the discharge instructions and disposition. - ECG O2 Sat by Pulse Oximetry: 99 (RA) Pulse Ox Interpretation: Normal - Radiology X-Ray: Interpreted by Me, Viewed By Me X-Ray Interpretation: No Acute Disease - Progress Re-evaluation Time: 13:10 Condition: Re-examined, Improved Disposition - Clinical Impression Clinical Impression: Influenza - Patient ED Disposition Is Patient to be Admitted: No Doctor Will See Patient In The: Office Counseled Patient/Family Regarding: Studies Performed, Diagnosis, Need For Followup - Disposition Referrals: [facility] [Outside] Disposition: Routine/Home Disposition Time: 13:11 Condition: GOOD Additional Instructions: SUZI KIRBY, thank you for letting us take care of you today. Your provider was Vazquez Galdamez MD and you were treated for CONGESTION. The emergency medical care you received today was directed at your acute symptoms. If you were prescribed any medication, please fill it and take as directed. It may take several days for your symptoms to resolve. Return to the Emergency Department if your symptoms worsen, do not improve, or if you have any other problems. Please contact your doctor or call one of the physicians/clinics you have been referred to that are listed on the Patient Visit Information form that is includ ed in your discharge packet. Bring any paperwork you were given at discharge with you along with any medications you are taking to your follow up visit. Our treatment cannot replace ongoing medical care by a primary care provider outside of the emergency department. Thank you for allowing the [facility] team to be part of your care today. If you had an X-Ray or CT scan: A Radiologist will review the ED reading if any change in treatment is needed we will contact you. If you had a blood, urine, or wound culture: It will take several days for the results, if any change in treatment is needed we will contact you. If you had an STI test: It will take 48 hours for the results. Please call after 1 week if you have not heard back. Prescriptions: Ibuprofen [Motrin] 600 mg PO Q6 #20 tab Oseltamivir Cap [Tamiflu] 75 mg PO BID #10 tab Promethazine/Codeine [Phenergan/Codeine Oral Syrup] 5 ml PO Q6 PRN #100 ml PRN Reason: Cough Instructions: Flu, Adult (DC) Forms: [employer] (Indian) Print Language: WELSH
--- NOTE | 2018-03-21 13:44 | RAD ---
Date of service: 03/21/2018 HISTORY: fever cough COMPARISON: No prior. TECHNIQUE: Chest PA and lateral FINDINGS: LUNGS: No active pulmonary disease. PLEURA: No significant pleural effusion identified. No pneumothorax apparent. CARDIOVASCULAR: No aortic atherosclerotic calcification present. Normal cardiac size. No pulmonary vascular congestion. OSSEOUS STRUCTURES: No significant abnormalities. VISUALIZED UPPER ABDOMEN: Normal. OTHER FINDINGS: None. IMPRESSION: No active disease.
[2018-03-21 13:48] VITALS: BP 109/76; PULSE 82; TEMP 98.2
[2018-03-21 13:50] VITALS: O2SAT 99
== END 2018-03-21 13:49 | disposition home or self-care (01) ==
LOC: H.ER 09:28
DX: J11.1 Influenza due to unidentified influenza virus with other respiratory manifestations (principal); E03.9 Hypothyroidism, unspecified; Z79.899 Other long term (current) drug therapy; Z88.0 Allergy status to penicillin